=== PATIENT | female | born 1985 | race Two or more races ===

== ENCOUNTER → 2019-09-10 | Outpatient (CLI) | payer OTHER ==
[~2019-09-10] MED LIST: GASTROGRAFIN SOLUTION 30ML (Q9963) As Ordered ONE; ISOVUE-370 76% 100ML VIAL (Q9967) As Ordered ONE
--- NOTE | 2019-09-10 15:09 | REPVR ---
PROCEDURE INFORMATION: Exam: CT Abdomen And Pelvis Without And With Contrast Exam date and time: 09/10/2019 2:13 PM Age: 33 years old Clinical indication: Abdominal pain; Localized; Lower; Additional info: Umbilical hernia TECHNIQUE: Imaging protocol: Computed tomography of the abdomen and pelvis without and with intravenous contrast. Coronal and sagittal reformats were created and reviewed. Radiation optimization: All CT scans at this facility use at least one of these dose optimization techniques: automated exposure control; mA and/or kV adjustment per patient size (includes targeted exams where dose is matched to clinical indication); or iterative reconstruction. Contrast material: ISOVUE 370; Contrast volume: 100 ml; Contrast route: IV; COMPARISON: No relevant prior studies available. FINDINGS: Lungs: The visualized lung bases are unremarkable. Liver: Unremarkable. Gallbladder and bile ducts: No intrahepatic or extrahepatic bile duct dilation. The gallbladder is unremarkable. Pancreas: Unremarkable. Spleen: Unremarkable. Adrenals: Unremarkable. Kidneys and ureters: The bilateral kidneys are unremarkable. No abnormal ureteral dilation. Stomach and bowel: The stomach is unremarkable. No evidence of colonic inflammation or obstruction. Oral contrast has progressed to the transverse colon. No evidence of small bowel inflammation or obstruction. Appendix: The appendix is visualized and has a normal appearance. Intraperitoneal space: Small intermediate-attenuation (29 Hounsfield units) free intraperitoneal dependent pelvic fluid. No pneumoperitoneum. Vasculature: The portal veins and hepatic veins appear patent. No abdominal aortic aneurysm. Lymph nodes: No enlarged lymph nodes. Bladder: The urinary bladder is unremarkable. Reproductive: Multiple small ovoid hypoattenuating foci at the cervix are nonspecific but presumably represent cervical cysts. No adnexal mass is identified. Right adnexal 1.8 x 1.9 x 1 cm ovoid mass with thick enhancing wall is nonspecific but could represent a physiologic right ovarian cyst (corpus luteal cyst) (for example coronal series 302, image 59). Bones/joints: No acute osseous abnormality. Soft tissues: There is midline anterior abdominal wall rectus diastasis at the supraumbilical and infraumbilical abdomen. A very small (approximately 5 mm) fat containing umbilical hernia is present. IMPRESSION: 1. Nonspecific right adnexal 1.9 cm mass. This could represent a physiologic ovarian cyst. However, a pathologic adnexal mass is not excluded. Further evaluation with pelvic ultrasound is recommended. 2. Nonspecific small free intraperitoneal fluid, possibly physiologic in nature. The fluid measures attenuation slightly greater than simple fluid and is suggestive of proteinaceous fluid. Hemorrhagic, infectious or inflammatory intraperitoneal fluid is not excludable. Clinical correlation is needed. Electronically signed by: Marco A Sahu On 09/10/2019 15:09:09 PM
== END ==
LOC: M RAD 12:01
PROVIDERS: ATTEND Nurse Practitioner Primary Care
DX: K42.9 Umbilical hernia without obstruction or gangrene (principal); N83.9 Noninflammatory disorder of ovary, fallopian tube and broad ligament, unspecified
CPT/HCPCS: 74178; Q9963; Q9967

== ENCOUNTER → 2019-10-21 | Outpatient (REF) | payer OTHER | LOC: M SFHCRHEU 15:05 | PROVIDERS: ATTEND Internal Medicine | DX: R76.8 Other specified abnormal immunological findings in serum (principal); R79.89 Other specified abnormal findings of blood chemistry; R20.2 Paresthesia of skin ==

== ENCOUNTER → 2020-02-09 | Outpatient (CLI) | payer OTHER ==
[~2020-02-09] MED LIST changes: -GASTROGRAFIN SOLUTION 30ML (Q9963) As Ordered ONE; -ISOVUE-370 76% 100ML VIAL (Q9967) As Ordered ONE; +PROHANCE 279.3MG/ML 15ML VIAL As Ordered ONE
--- NOTE | 2020-03-27 10:48 | REP ---
MRI PELVIS WITH AND WITHOUT CONTRAST: HISTORY: Leiomyomas. TECHNIQUE: Multiple sequences are obtained in the pelvis in the axial, coronary and sagittal planes prior to and following the intravenous administration of 12 cc ProHance. FINDINGS: Uterine length is approximately 10.3 cm. Endometrial thickness is approximately 12 mm. The junctional zone appears intact. There is a posterior fibroid on the left in the region of the uterine body measuring 1.2 cm in diameter. No other discrete fibroids are seen. There are multiple small Nabothian cysts surrounding the cervix. For the most part, these are subcentimeter in size with a couple slightly greater than 1 cm in diameter. There appears to be a section scar in the right lower uterine segment. The ovaries appear unremarkable. There is a dominant follicle of the left ovary, 2.2 cm in diameter. Otherwise, no adnexal mass is seen. There is trace physiologic amount of fluid in the pelvis. There is no pelvic adenopathy. No other pelvic abnormality is seen. IMPRESSION: There is a posterior left uterine fibroid in the body of the uterus measuring 1.2 cm in diameter. No other discrete fibroids are seen. The uterine length is 10.3 cm. Endometrial thickness is 12 mm. Multiple Nabothian cysts are seen in the region of the cervix. There is a section scar in the right lower uterine segment. There is no adnexal mass or free fluid. MTDD
== END ==
LOC: M RAD 07:45
PROVIDERS: ATTEND Obstetrics & Gynecology
DX: D25.9 Leiomyoma of uterus, unspecified (principal); N88.8 Other specified noninflammatory disorders of cervix uteri
CPT/HCPCS: 72197; A9576

== ENCOUNTER → 2020-08-09 | Outpatient (REF) | payer OTHER ==
[2020-08-09 17:32] LABS: CREATININE,RANDOM URINE 66.3 MG/DL; TOTAL PROTEIN,RANDOM URINE 7.1 MG/DL (0.0-12.0)
== END ==
LOC: M SFHCRHEU 12:26
PROVIDERS: ATTEND Internal Medicine
DX: L50.8 Other urticaria (principal)
CPT/HCPCS: 82570; 84156; G0463

== ENCOUNTER → 2020-08-16 | Outpatient (CLI) | payer OTHER ==
[2020-08-16 17:10] LABS: ALBUMIN 4.2 GM/DL (3.2-5.2); ALT/SGPT 47 U/L (12-78); BILIRUBIN,TOTAL 0.3 MG/DL (0.2-1.0); BLOOD UREA NITROGEN 16 MG/DL (7-18); C REACTIVE PROTEIN QUANTITATIV 1.04 MG/DL (0.00-0.30); CALCIUM LEVEL 9.7 MG/DL (8.5-10.1); CARBON DIOXIDE LEVEL 27 MEQ/L (21-32); CHLORIDE LEVEL 101 MEQ/L (98-107); COMPLEMENT C3 148 MG/DL (90-180); COMPLEMENT C4 44 MG/DL (10-40); CREATININE FOR GFR 0.82 MG/DL (0.55-1.30); GLOMERULAR FILTRATION RATE > 60.0 (>60); GLUCOSE, FASTING 86 MG/DL (70-100); POTASSIUM SERUM 4.1 MEQ/L (3.5-5.1); RHEUMATOID FACTOR QUANT < 10.0 IU/ML (<15.0); SODIUM LEVEL 137 MEQ/L (136-145); TOTAL PROTEIN 8.5 GM/DL (6.4-8.2)
[2020-08-16 17:20] LABS: THYROID PEROXIDASE ANTIBODY > 1300.0 U/ML (<60.0)
== END ==
LOC: M LAB 15:40
PROVIDERS: ATTEND Internal Medicine
DX: R21 Rash and other nonspecific skin eruption (principal)